=== PATIENT | male | born 1950 | race Caucasian/White ===

== ENCOUNTER 2017-12-21 19:21 | Observation (INO) | payer MEDICARE, OTHER, SELFPAY ==
[2017-12-21] VITALS (10 sets, daily range): BP systolic 133–150; BP diastolic 74–81; PULSE 46–78; RESP 15–18; TEMP 36.4–36.7; O2SAT 96–98; BMI 25.7; BMI 27.0; BMI 27.1
--- NOTE | 2017-12-21 19:46 | CT_ITS ---
STUDY: CT BRAIN WITHOUT CONTRAST REASON FOR EXAM: Male, 67 years old. Dizziness. Recent fall. RADIATION DOSAGE (If Supplied By Facility): CTDIvol = ( 44.99 ) mGy, DLP = ( 846.73 ) mGycm TECHNIQUE: Transaxial CT imaging of the brain was performed without administration of intravenous contrast material. Individualized dose optimization techniques were used for this CT. COMPARISON: None. FINDINGS: Normal soft tissue structures. Normal calvarium. Normal size ventricles and extra-axial spaces for the patient's age. Normal white matter tracts of the cerebral hemispheres. There are small punctate calcifications of the basal ganglia which are seen in the aging brain as a normal variant. Normal brainstem. Normal cerebellum. There is no intracranial hemorrhage. There are no findings of an acute ischemic infarction. Normal visualized paranasal sinuses. CT/Brain/Head without Contrast IMPRESSION: Normal unenhanced CT scan of the brain. Electronically Signed: Radames Vaughan MD at 20:20 EST , Service support ,
--- NOTE | 2017-12-21 19:46 | EKG12_ITS ---
Test Reason : GENERAL ILLNESS Blood Pressure : / mmHG Vent. Rate : 049 BPM Atrial Rate : 049 BPM P-R Int : 182 ms QRS Dur : 072 ms QT Int : 440 ms P-R-T Axes : 035 -16 011 degrees QTc Int : 397 ms Sinus bradycardia Inferior infarct , age undetermined Abnormal ECG Confirmed by KATHERINE MUÑOZ, CARY ([id number]), editor house organ CULLEN BARNETT ([id number]) on 12/25/2017 3:38:56 PM Referred By: DR MALONE Confirmed By:CARY MURPHY MD
[2017-12-21 20:01] LABS: Bedside Glucose 101 mg/dL (70-110)
[2017-12-21 20:13] LABS: Absolute Lymphocyte Count 2.17 X10^3/ul (0.83-4.51); Absolute Neutrophil Count 4.3 X10^3/uL (2.0-7.7); Basophil# 0.03 X10^3/uL; Basophil% 0.4 % (0-1); Eosinophil# 0.08 X10^3/uL; Eosinophils% 1.1 % (0-5); Hematocrit 39.8 % (40-54); Hemoglobin 12.9 g/dl (13.0-16.5); Lymphocyte # 2.17 X10^3/ul (4.0); Lymphocyte % 29.4 % (19-41); Mean Corp Hgb Conc 32.4 g/gl (32-36); Mean Corpuscular Hgb 31.3 pg (27.0-32.0); Mean Corpuscular Volume 96.6 fL (80-94); Mean Platelet Vol. 10.1 fl (6.2-12.0); Monocyte# 0.75 X10^3/uL; Monocyte% 10.2 % (0-10); Neutrophil # 4.34 X10^3/uL (2.7-7.7); Neutrophil % 58.8 % (47-70); Platelet Count 191 K/mm3 (150-450); RBC Distribution Width CV 14.3 % (11.6-14.6); RBC Distribution Width SD 50.9 fl (35.1-43.9); Red Blood Count 4.12 M/mm3 (4.6-6.2); White Blood Count 7.4 K/mm3 (4.4-11.0)
[2017-12-21 20:16] LABS: POSITIVE COUNT NO; POSITIVE DIFFERENTIAL NO; POSITIVE MORPHOLOGY NO
--- NOTE | 2017-12-21 20:19 | ED.VISSUMM ---
- ER Visit Summary Date of Service: 12/21/17 Chief Complaint: Dizziness, unsteady gait History of Present Illness: The patient is a 67 M presenting with dizziness, unsteady gait. He states he woke up around 3 AM and went to the bathroom. He said at that time he had unsteady gait and dizziness. He went back to bed. At 8 AM he woke up and was feeling back to baseline. Around 6:45 PM he went to a . When he tried to walk into the he had unsteady gait and nearly fell. EMS was called. He denies vision or speech changes. Denies numbness or weakness. He has had previous strokes with similar symptoms. He has been off Plavix for the past week due to a kidney stone procedure and upcoming back injection. also noted shortness of breath. He denies chest pain. Physical Examination: Vitals are stable. Patient is afebrile. Alert no acute distress. HEENT exam is unremarkable. Neck is supple. Lungs are clear and equal bilaterally. Heart is regular rate and rhythm. Abdomen is soft nontender nondistended. Extremities are unremarkable. Skin is warm and dry. No focal neurologic deficit. NIH 0 Remainder of exam is unremarkable. Emergency Department Course and Treatment: EKG is sinus bradycardia rate of 49 with no acute ischemic changes. CBC, chemistries unremarkable. INR 1.0. Chest x-ray shows no acute process. CT head shows no acute process. Stroke team was not activated due to NIH less than 4. Patient is feeling improved. Will discuss with the hospitalist for observation. Disposition: Observation Impression: TIA This note was generated with [employer] dictation software. It may contain incorrect words, spelling, and punctuation that were not noted in review of the chart prior to signing ED Disposition - Plan for ED Patient: Chief Complaint: General Illness Referrals: Uri Cortes MD [Primary Care Provider] -
--- NOTE | 2017-12-21 20:20 | RAD_ITS ---
STUDY: X-RAY CHEST REASON FOR EXAM: Male, 67 years old. SOB. He cardia weakness. TECHNIQUE: Portable chest. COMPARISON: None. FINDINGS: The lungs are clear and expanded. There is no demonstrated pleural abnormality. Normal size heart. Normal mediastinum and tania. Normal visualized pulmonary arteries. Normal visualized aortic arch and descending thoracic aorta. Normal visualized thoracic spine. Normal visualized ribs, clavicles, and shoulders. There is no demonstrated abnormality of the visualized soft tissue structures of the upper abdomen. RAD/Chest 1 View IMPRESSION: Normal x-ray examination of the chest. Electronically Signed: Monique Holley MD at 20:40 EST Tel , Service support ,
[2017-12-21 20:22] LABS: Prothrombin Time (Protime)PT. 13.2 SECONDS (11.7-14.9)
[2017-12-21 20:23] LABS: Partial Thromboplast Time 27.9 Seconds (24.1-36.2)
[2017-12-21 20:32] LABS: Anion Gap 7 (5-15); BUN 21 mg/dL (7-18); BUN/Creat Ratio 16.8 RATIO (10-20); Chloride 108 mmol/L (98-107); Creatinine, Serum 1.25 mg/dL (0.70-1.30); EST Glomerular Filtration Rate 61 mL/min (>60); Est Glom Filt Rate - Afr Amer 74 mL/min (>60); Glucose 90 mg/dL (74-106); Potassium 3.8 mmol/L (3.5-5.1); Sodium Level 141 mmol/L (136-145)
--- NOTE | 2017-12-21 21:30 | ED.RN ---
PER MD AMBRIZ TO DO NIH HOURLY UNTIL ADMIT D/T THE PATIENT HAVING A SCORE OF 0 SINCE ARRIVAL.
--- NOTE | 2017-12-21 22:06 | CT_ITS ---
STUDY: CTA OF THE BRAIN REASON FOR EXAM: Male, 67 years old. TIA, dizziness and fell. RADIATION DOSAGE (If Supplied By Facility): CTDIvol = ( 24.42 ) mGy, DLP = ( 87558 ) mGycm TECHNIQUE: CT angiography was performed with a multi-detector CT scanner. Data acquisition was obtained from the skull base through the vertex following intravenous administration of ml of . MIP images were reconstructed from the axial data set. Post-processing of the angiographic images was performed, with multiplanar reformation and 3D reconstruction. Individualized dose optimization techniques were used for this CT. COMPARISON: None. FINDINGS: Normal bilateral petrous carotid arteries. Normal right cavernous carotid artery with a normal supraclinoid bifurcation. Normal left cavernous carotid artery with a normal supraclinoid bifurcation. Normal right A1 segments of the anterior cerebral artery. Normal left A1 segments of the anterior cerebral artery. Normal intact anterior communicating artery (ACOM). Normal bilateral A2 segments of the anterior cerebral arteries. Normal right M1 and M2 segments of the middle cerebral arteries, with a normal M1 bifurcation. Normal left M1 and M2 segments of the middle cerebral arteries, with a normal M1 bifurcation. Robust right posterior communicating artery (PCOM). Robust left posterior communicating artery (PCOM). Normal left vertebral artery. Right vertebral artery terminates in the posterior inferior cerebellar artery, normal variant. Normal basilar artery with a normal basilar bifurcation. The visualized bilateral superior cerebellar (SCA) arteries are normal. P1 segments of the posterior cerebral arteries are somewhat hypoplastic bilaterally. Normal bilateral P2 and visualized P3 segments of the posterior cerebral arteries. There is no demonstrated aneurysm of the [place]. CT/CTA Head W/WO Contrast IMPRESSION: 1. Normal [place] without a demonstrated aneurysm or significant stenosis. Anatomic variants are detailed above. Electronically Signed: Monique Holley MD at 23:40 EST Tel , Service support ,
--- NOTE | 2017-12-21 22:06 | MRI_ITS ---
STUDY: MRI BRAIN WITHOUT CONTRAST REASON FOR EXAM: Male, 67 years old. Dizziness and ataxia yesterday. TECHNIQUE: Standardized multiplanar fat and water weighted pulse sequences were obtained. COMPARISON: None. FINDINGS: There is mild cerebral atrophy with widening of the extra-axial spaces and ventricular dilatation. There are a limited number of small white matter hyperintensities, distributed throughout the deep white matter tracts of the cerebral hemispheres, consistent with mild chronic white matter ischemic changes. There is no evidence for recent intracranial ischemia or other cause of cytotoxic edema on diffusion weighted imaging (DWI). There is no evidence for recent intracranial ischemia or other cause of cytotoxic edema on diffusion weighted imaging (DWI). Normal T2* images of the brain without demonstrated susceptibility artifact. There is no demonstrated hemosiderin stain. There are prominent perivascular spaces (PVS) involving the basal ganglia. There is a focus of abnormal signal left thalamus consistent with old infarct. There is no extra-axial fluid accumulation. Normal flow voids within the major intracranial circulation suggesting patency by spin echo criteria. Normal sella turcica, pituitary gland, infundibular stalk, optic chiasm and hypothalamus. Normal tectal plate and pineal gland. Normal midbrain, evy and medulla. There is a focal area of encephalomalacia involving the superior right cerebellar hemisphere probably related to old infarct. There are large basal cisterns. Normal bilateral temporal bones. Normal bilateral internal auditory canals. There are bilateral ocular lens implants with otherwise normal intraorbital contents. There is mucoperiosteal inflammatory disease of the paranasal sinuses consistent with mild chronic sinusitis. Normal calvarium and skull base. Normal visualized soft tissue structures. Normal visualized upper cervical spine. MRI/Brain without Contrast IMPRESSION: 1. Involutional changes of the brain, as described above. 2. No MRI evidence for acute infarct. 3. 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 Electronically Signed: Essie Turcios MD at 9:13 EST , Service support ,
--- NOTE | 2017-12-21 22:06 | CT_ITS ---
Exam: CTA of the neck with contrast and 2-D reconstructions. HISTORY: Dizziness. Fall. TIA. Previous CVAs. COMPARISON: None TECHNIQUE: Patient injected with 100 cc [id number] IV. Axial images were followed with 2-D MIPS reconstructions reviewed at a separate workstation. FINDINGS: Normal appearance of the visualized aortic arch. Normal branching pattern of the great vessels. Common carotid arteries are normal for age. The right bifurcation has moderate calcified plaque, but no definite hemodynamically significant stenosis. The left bifurcation has mild calcified plaque but no definite hemodynamically significant stenosis. Normal appearance of the cervical ICAs bilaterally to the base of the brain. Normal origin and appearance of the vertebral arteries. The left vertebral artery is dominant. Normal visualized basilar artery. Visualized soft tissues including the lung apices and visualized cervical spine show no gross acute abnormalities. CT/CTA Neck W/WO Contrast IMPRESSION: CTA of the neck vessels is essentially unremarkable for age, with no occlusions or definite hemodynamically significant stenoses.. Electronically Signed: Radames Vaughan MD at 23:20 EST , Service support ,
--- NOTE | 2017-12-21 22:10 | PCM.HP.STD ---
Problem List (1) TIA (transient ischemic attack) Status: Acute (2) Ischemic stroke Status: Acute (3) Dyslipidemia Status: Acute (4) Hypertension Status: Chronic (5) Chronic lumbar pain Status: Chronic History of Present Illness Date of Admission: 12/21/17 Chief Complaint: Vertigo and ataxia today The patient is a 67 year old M with history of TIA and stroke about 3 times in the past with no residual symptoms came to ED with dizziness, vertigo and unsteady gait today. After he woke up, he felt vertigo with dizzy sensation but that resolved after a short time. He was fine after that and then around the afternoon/evening he felt he could not stand up or his legs are giving out. He felt like his drifting on the left side. He denies change in vision or speech. Denies weakness or numbness or tingling. No dysphagia. Patient denies chest pain or missed heartbeat/flutter waves. As per the son, patient had a small PFO. In ED, basic workup was on baseline. BUN 21. Chest x-ray and CT does not show acute change. EKG shows sinus bradycardia at 49 bpm. Patient was not taking Plavix for about 1 week as he was supposed to have lumbar spine injection. As per the son, there is no any procedure for kidney stone is proposed are scheduled [] Past Medical History Past Medical History (Chronic Problems): Chronic Problems Hypertension (Chronic) Chronic lumbar pain (Chronic) Allergies No Known Allergies Allergy (Verified 12/21/17 19:26) Home Medications: Ambulatory Orders Medication Instructions Recorded Atorvastatin Calcium [Lipitor] 40 mg PO QHS 12/21/17 Clopidogrel Bisulfate [Plavix] 75 mg PO DAILY 12/21/17 Multivitamins,Therapeutic 1 tablet PO DAILY 12/21/17 [Multivitamin] Timolol 1 drop RIGHT EYE DAILY 12/21/17 Smoking Status: Never smoker - *Family History Paternal History Items: No pertinent history Review of Systems Constitutional: Denies: Chills, Fever, Weight Change HEENT: Reports: Difficulty Hearing, Hard of Hearing. Denies: Difficulty Swallowing, Dysphasia, Head Aches, Sinus Congestion, Sinus Drainage, Visual Changes Cardiovascular: Denies: Chest Pain, Chest Pressure, Palpitations Respiratory: Denies: Cough, Shortness of breath at rest, Shortness of breath upon exertion, Sputum production Gastrointestinal: Denies: Abdominal Pain, Nausea, Vomiting Genitourinary: Denies: Dysuria, Frequency, Hematuria Musculoskeletal: Reports: Back Pain, Joint Pain. Denies: Joint Tenderness Skin: Denies: Rash, Wounds Neurological: Reports: Balance problems - Lumbar spine pain, Incoordination. Denies: Blurred vision, Double vision, Change in Speech, Slurred speech, Confusion, Difficulty swallowing, Focal weakness, Numbness, Tingling Psychiatric: Denies: Anxiety, Depression, Homicidal Ideations, Suicidal Ideations Hematologic/ Lymphatic: Denies: Easy Bruising, Easy Bleeding VTE Information - Inpt Only VTE Present on Admission: No VTE Mechan Device Prophylaxis: SCD's VTE Pharm Prophylaxis ordered?: Yes Patient Problems: Active and Suspected Problems TIA (transient ischemic attack) (Acute) Ischemic stroke (Acute) Dyslipidemia (Acute) - Physical Exam General: Alert, Oriented x3, Cooperative HEENT: Atraumatic, PERRLA, EOMI, Normocephalic Neck: Supple, No JVD, Negative Carotid Bruits Lungs: Clear to auscultation, No rhonchi, No wheeze, No rales, Diminished - Air entry diminished in bilateral lung bases Cardiovascular: Regular Rhythm, Normal S1, Normal S2, No murmurs, Bradycardic Abdomen: Bowel Sounds Present, Soft, Non Tender, Non-Distended, No Hepato-splenomegaly Extremities: No edema, Capillary Refill Less than 3 Seconds Skin: No rashes, No breakdown Musculoskeletal: No Tenderness to Palpation of Joints or Extremities, Arthritic Changes Neurological: Cranial nerves II-XII grossly intact, Deep Tendon Reflexes 2+/4 and Symmetrical, Neuro grossly intact, Motor Exam 5/5 strength throughout, - - NIH stroke scale 0. No facial droop. Psych/Mental Status: Normal Affect, Appropriate Vital Signs Temp Pulse Resp BP Pulse Ox 98.0 F 50 L 15 135/79 H 98 12/21/17 19:21 12/21/17 22:00 12/21/17 22:00 12/21/17 22:00 12/21/17 21:00 Oxygen Delivery Method Room Air Weight: 185 lb Body Mass Index (BMI) 25.7 Finger Stick Blood Glucose 101 Laboratory Tests Past 24 Hrs 12/21/17 12/21/17 12/21/17 19:55 19:55 19:55 WBC 7.4 RBC 4.12 L Hgb 12.9 L Hct 39.8 L MCV 96.6 H MCH 31.3 MCHC 32.4 RDW 14.3 RDW Differential 50.9 H Plt Count 191 MPV 10.1 Immature Gran % (Auto) 0.100 Neut % (Auto) 58.8 Lymph % (Auto) 29.4 Evangeline % (Auto) 10.2 H Eos % (Auto) 1.1 Baso % (Auto) 0.4 Absolute Neuts (auto) 4.3 Absolute Lymphs (auto) 2.17 Total Counted Not Reportable PT 13.2 INR 1.0 APTT 27.9 Sodium 141 Potassium 3.8 Chloride 108 H Carbon Dioxide 26.0 Anion Gap 7 BUN 21 H Creatinine 1.25 Estim Creat Clear Calc 59.40 Est GFR (MDRD) Af Amer 74 Est GFR (MDRD) Non-Af 61 BUN/Creatinine Ratio 16.8 Glucose 90 Calcium 9.0 Troponin I < 0.015 POC Glucose 12/21/17 19:53 POC Glucose 101 Assessment/Plan All Active Problems TIA (transient ischemic attack) (Acute) Ischemic stroke (Acute) Dyslipidemia (Acute) The patient is a 67 year old M with history of TIA and stroke about 3 times in the past with no residual symptoms came to ED with dizziness, vertigo and unsteady gait today. After he woke up, he felt vertigo with dizzy sensation but that resolved after a short time. He was fine after that and then around the afternoon/evening he felt he could not stand up or his legs are giving out. He felt like his drifting on the left side. He denies change in vision or speech. Denies weakness or numbness or tingling. No dysphagia. In ED, basic workup was on baseline. BUN 21. Chest x-ray and CT does not show acute change. EKG shows sinus bradycardia at 49 bpm. Patient was not taking Plavix for about 1 week as he was supposed to have lumbar spine injection. 1. TIA with history of stroke/TIA with no residual symptoms: Patient is being admitted on PCU on cardiac telemetry. On a stroke/TIA protocol with MRI brain, CTA of head and neck, neurology consult and 2D echo. Patient is on Plavix and atorvastatin at home but he was not taking Plavix for 1 week as mentioned above. PT/OT and speech evaluation as per TIA protocol. BP and glucose control as per stroke guidelines. 2. Possible undiagnosed hypertension: Patient blood pressure was 150/80 in triage. Currently it is controlled 135/79. Does not need antihypertensive medication. Permissive hypertension. 3. Dyslipidemia: Fasting profile tomorrow a.m. 4. Small PFO as per the son: 2D echo is ordered. 5. Chronic lumbar spine pain probably secondary to degenerative joint disease: Stable. DVT prophylaxis: On heparin 5000 units subcut units twice daily This note was generated with [employer] dictation software. Every effort was made to ensure accuracy, however computerized business services specialist sales mistakes may persist. Code Visit OBSV E&M: 73629 Initial observation care L3
[2017-12-22] VITALS (7 sets, daily range): BP systolic 118–133; BP diastolic 63–89; PULSE 48–67; RESP 16; TEMP 36.4–36.8; O2SAT 97–98; BMI 27.0
[2017-12-22] MEDS: 0.9% Normal Saline 1,000 ML 100 ML IV (00:03)
[2017-12-22] MEDS: Atorvastatin Calcium 80 MG Tablet PO (00:14)
[2017-12-22 00:51] LABS: Bedside Glucose 116 mg/dL (70-110)
[2017-12-22 00:57] LABS: Thyroid Stim Hormone (TSH) 3.09 uIU/mL (0.358-3.74)
[2017-12-22 07:25] LABS: Anion Gap 8 (5-15); BUN 20 mg/dL (7-18); BUN/Creat Ratio 18.5 RATIO (10-20); Calcium,Total 8.6 mg/dL (8.5-10.1); Chloride 111 mmol/L (98-107); Cholesterol 173 mg/dL (200); Creatinine, Serum 1.08 mg/dL (0.70-1.30); EST Glomerular Filtration Rate 72 mL/min (>60); Est Glom Filt Rate - Afr Amer 87 mL/min (>60); Estimated Creatinine Clearance 68.75 ml/min; Glucose 98 mg/dL (74-106); High Density Lipoprotein 60 mg/dL; Potassium 3.9 mmol/L (3.5-5.1); Sodium Level 144 mmol/L (136-145); Triglycerides 111 mg/dL; Very Low Density Lipoprotein 22 mg/dL (5-40)
[2017-12-22] MEDS: Timolol 0.5% 5ML OPTH.BTL 1 DRP RIGHT EYE (09:19)
[2017-12-22] MEDS: Heparin Injection (Vial) 5,000 UNIT/ML VIAL 5000 UNIT SC (09:19)
[2017-12-22] MEDS: Clopidogrel Bisulfate 75 MG Tablet PO (09:19)
[2017-12-22] MEDS: Multivitamins,Therapeutic Tablet 1 TABLET PO (09:19)
[2017-12-22] MEDS: Famotidine 20 MG Tablet PO (09:19)
--- NOTE | 2017-12-22 10:00 | ECHOD_ITS ---
Reason For Study: TIA/CVA Procedure This was a 2D Doppler, Color Flow transthoracic echocardiogram. Exam performed portable in patient room. Left Ventricle Normal size and thickness. The estimated ejection fraction is 65 %. Normal diastology for age. No regional wall motion abnormalities noted. Right Ventricle Normal size and thickness. Normal systolic function. Atria Normal left atrium. Normal right atrium. Normal atrial septum. Positive bubble study with R to L crossover. Mitral Valve The mitral valve is structurally normal. No prolapse or stenosis seen. Tricuspid Valve Normal tricuspid valve. Unable to estimate RV systolic pressure due to inadequate jet, pulmonary artery pressure probably normal. Aortic Valve Normal aortic valve. Trisinus/trileaflet aortic valve. Pulmonic Valve Normal pulmonic valve. Trivial pulmonic valve insufficiency. Great Vessels Normal aortic root. Mild atherosclerosis of the aortic arch. Normal inferior vena cava. Inferior vena cava collapse with sniff. Pericardium/Pleural No pericardial effusion. Medication Performed a rapid injection of agitated mix of 9 cc saline and 1cc air to assess for atrial septal defect. MMode/2D Measurements & Calculations LVIDd: 3.6 cm IVSd: 1.1 cm Ao root diam: 3.7 cm LVIDs: 1.9 cm LVPWd: 0.79 cm LA dimension: 3.6 cm RVDd: 3.7 cm FS: 46.8 % LAV(MOD-bp): 59.1 ml LA A4 area: 17.8 cm2 RA A4 area: 16.5 cm2 LAV(MOD-bp) Indexed: 28.4 ml/m2 LAV(MOD-sp2): 72.3 ml LAV(MOD-sp4): 48.0 ml Time Measurements MV dec time: 0.26 sec Doppler Measurements & Calculations MV E max anibal: 74.3 cm/sec Lat Peak E' Anibal: 8.3 cm/sec Med Peak E' Anibal: 8.6 cm/sec MV A max anibal: 71.7 cm/sec E/E' lat: 8.9 E/E' med: 8.7 MV E/A: 1.0 MV V2 max: 95.3 cm/sec MV P1/2t max anibal: 97.3 cm/sec Ao V2 max: 126.2 cm/sec MV max P.6 mmHg MV P1/2t: 101.0 msec Ao max P.4 mmHg MV V2 mean: 51.5 cm/sec MV dec slope: 282.1 cm/sec2 Ao V2 mean: 80.5 cm/sec MV mean P.3 mmHg MVA(P1/2t): 2.2 cm2 Ao mean P.0 mmHg MV V2 VTI: 33.4 cm Ao V2 VTI: 28.3 cm LV V1 max: 117.9 cm/sec PA V2 max: 117.5 cm/sec LV V1 max P.6 mmHg LV V1 mean P.4 mmHg LV V1 mean: 71.1 cm/sec LV V1 VTI: 26.3 cm Interpretation Summary The estimated ejection fraction is 65 %. Normal diastology for age. Positive bubble study with R to L crossover. Unable to estimate RV systolic pressure due to inadequate jet, pulmonary artery pressure probably normal. There is no comparison study available. Ordering Physician: Rosendo Cooper Referring Physician: Uri Cortes Performed By: Mars Riley RCS
--- NOTE | 2017-12-22 10:40 | CON.PCM_ITS ---
Reason for Consult Date of Consultation: 12/22/17 Reason for Consultation: discoordination History of Present Illness: The patient is a 67 year old M presented after spell of discoordination yesterday begininning around 7pm and lasting 4 hours. was walking and suddenly veered to the left. no other symptoms. was with him and reports he was staggering, like drunk. did not note other focal symptoms. earlier that day at 3am noted similar symptoms. denies lightheadedness or spinning. meds held 4 days ago pre-procedure. now feels normal. in august he was admitted for ministroke which reports didnt show up on tests. they dont remember seeing a neurologist at that point ([facility]). symptoms apparently the same, worse however. Per admit H&P: The patient is a 67 year old M with history of TIA and stroke about 3 times in the past with no residual symptoms came to ED with dizziness, vertigo and unsteady gait today. After he woke up, he felt vertigo with dizzy sensation but that resolved after a short time. He was fine after that and then around the afternoon/evening he felt he could not stand up or his legs are giving out. He felt like his drifting on the left side. He denies change in vision or speech. Denies weakness or numbness or tingling. No dysphagia. Patient denies chest pain or missed heartbeat/flutter waves. As per the son, patient had a small PFO. In ED, basic workup was on baseline. BUN 21. Chest x-ray and CT does not show acute change. EKG shows sinus bradycardia at 49 bpm. Patient was not taking Plavix for about 1 week as he was supposed to have lumbar spine injection. As per the son, there is no any procedure for kidney stone is proposed are scheduled as Past Medical History Past Medical History (Chronic Problems): Chronic Problems Hypertension (Chronic) Chronic lumbar pain (Chronic) Allergies No Known Allergies Allergy (Verified 12/21/17 19:26) Home Medications: Ambulatory Orders Medication Instructions Recorded Atorvastatin Calcium [Lipitor] 40 mg PO QHS 12/21/17 Clopidogrel Bisulfate [Plavix] 75 mg PO DAILY 12/21/17 RX: Multivitamins,Therapeutic 1 tablet PO DAILY 12/21/17 [Multivitamin] Timolol 1 drop RIGHT EYE DAILY 12/21/17 Sertraline HCl [Zoloft] 50 mg PO DAILY 12/22/17 Smoking Status: Never smoker Tobacco Use: Non-smoker - *Family History Paternal History Items: No pertinent history Review of Systems Constitutional: Denies: Chills, Fever, Weight Change HEENT: Denies: Head Aches, Sinus Congestion, Sinus Drainage Cardiovascular: Denies: Chest Pain, Palpitations Respiratory: Denies: Cough, Shortness of breath at rest, Sputum production Gastrointestinal: Denies: Abdominal Pain, Nausea, Vomiting Genitourinary: Denies: Dysuria Musculoskeletal: Denies: Joint Pain, Joint Tenderness Skin: Denies: Rash, Wounds Neurological: Denies: Numbness, Tingling, Focal weakness Psychiatric: Denies: Anxiety, Depression, Homicidal Ideations, Suicidal Ideations Hematologic/ Lymphatic: Denies: Easy Bruising, Easy Bleeding Patient Problems: Active and Suspected Problems TIA (transient ischemic attack) (Acute) Ischemic stroke (Acute) Dyslipidemia (Acute) - Physical Exam General: Alert, Oriented x3, Cooperative, No apparent distress Neurological: Cranial nerves II-XII grossly intact, Deep Tendon Reflexes 2+/4 and Symmetrical, Neuro grossly intact, Motor Exam 5/5 strength throughout, Coordination normal Psych/Mental Status: Normal Affect, Alert and oriented to time, place, person, mood and affect Vital Signs Temp Pulse Resp BP Pulse Ox 36.8 C 60 16 126/69 H 98 12/22/17 07:45 12/22/17 07:45 12/22/17 07:45 12/22/17 07:45 12/22/17 07:45 Oxygen Delivery Method Room Air Weight: 88 kg Body Mass Index (BMI) 27.0 Finger Stick Blood Glucose 101 Intake and Output for Last 24 Hours 12/20/17 12/21/17 12/22/17 23:59 23:59 23:59 Intake Total 855 / 855 Output Total 350 / 350 Balance 505 / 505 Laboratory Tests Past 24 Hrs 12/21/17 12/21/17 12/21/17 19:55 19:55 19:55 WBC 7.4 RBC 4.12 L Hgb 12.9 L Hct 39.8 L MCV 96.6 H MCH 31.3 MCHC 32.4 RDW 14.3 RDW Differential 50.9 H Plt Count 191 MPV 10.1 Immature Gran % (Auto) 0.100 Neut % (Auto) 58.8 Lymph % (Auto) 29.4 [place] % (Auto) 10.2 H Eos % (Auto) 1.1 Baso % (Auto) 0.4 Absolute Neuts (auto) 4.3 Absolute Lymphs (auto) 2.17 Total Counted Not Reportable PT 13.2 INR 1.0 APTT 27.9 Sodium 141 Potassium 3.8 Chloride 108 H Carbon Dioxide 26.0 Anion Gap 7 BUN 21 H Creatinine 1.25 Estim Creat Clear Calc 59.40 Est GFR (MDRD) Af Amer 74 Est GFR (MDRD) Non-Af 61 BUN/Creatinine Ratio 16.8 Glucose 90 Calcium 9.0 Troponin I < 0.015 Triglycerides Cholesterol LDL Cholesterol VLDL Cholesterol HDL Cholesterol TSH 12/21/17 12/22/17 23:52 06:27 WBC RBC Hgb Hct MCV MCH MCHC RDW RDW Differential Plt Count MPV Immature Gran % (Auto) Neut % (Auto) Lymph % (Auto) [place] % (Auto) Eos % (Auto) Baso % (Auto) Absolute Neuts (auto) Absolute Lymphs (auto) Total Counted PT INR APTT Sodium 144 Potassium 3.9 Chloride 111 H Carbon Dioxide 25.0 Anion Gap 8 BUN 20 H Creatinine 1.08 Estim Creat Clear Calc 68.75 Est GFR (MDRD) Af Amer 87 Est GFR (MDRD) Non-Af 72 BUN/Creatinine Ratio 18.5 Glucose 98 Calcium 8.6 Troponin I < 0.015 Triglycerides 111 Cholesterol 173 LDL Cholesterol 91 VLDL Cholesterol 22 HDL Cholesterol 60 TSH 3.09 POC Glucose 12/22/17 12/21/17 00:43 19:53 POC Glucose 116 H 101 Current Medications Generic Name Dose Route Start Last Admin Trade Name Freq PRN Reason Stop Dose Admin Acetaminophen 650 mg 12/21/17 22:06 Tylenol PO Q4H PRN PRN Headache/Temp>99F Atorvastatin Calcium 80 mg 12/21/17 22:06 12/22/17 00:14 Lipitor PO 80 mg QHS BATOOL Administration Clopidogrel Bisulfate 75 mg 12/22/17 10:00 12/22/17 09:19 Plavix PO 75 mg DAILY BATOOL Administration Famotidine 20 mg 12/22/17 10:00 12/22/17 09:19 Pepcid PO 20 mg BID BATOOL Administration Heparin Sodium (Porcine) 5,000 unit 12/22/17 10:00 12/22/17 09:19 Heparin Na SC 5,000 unit BID BATOOL Administration Labetalol HCl 10 mg 12/21/17 22:06 Trandate IV 12/22/17 22:07 Q10M PRN MAINTAIN BP < 220/120 Multivitamins 1 tablet 12/22/17 08:00 12/22/17 09:19 Multivitamin PO 1 tablet DAILYCM BATOOL Administration Sodium Chloride 5 - 30 ml 12/22/17 00:10 IV UD PRN SALINE FLUSH Timolol Maleate 1 drop 12/22/17 10:00 12/22/17 09:19 Timoptic RIGHT EYE 1 drop DAILY BATOOL Administration MRI reviewed, no acute CTA reviewed. There is multifocal calcifications however there does not appear to be significant stenosis. Assessment/Plan All Active Problems TIA (transient ischemic attack) (Acute) Ischemic stroke (Acute) Dyslipidemia (Acute) transient discoordination, tia (unlikely given stereotyped nonfocal events) versus transient hypotension or arrhythmia vs bppv tele pt/ot even monitor rec check orthostatics
[2017-12-22 11:06] LABS: Bedside Glucose 102 mg/dL (70-110)
[2017-12-22 11:21] LABS: Bedside Glucose 143 mg/dL (70-110)
--- NOTE | 2017-12-22 13:58 | DCINST_ITS ---
- Discharge Diagnoses Current Active Problems: Current Active and Chronic Problems TIA (transient ischemic attack) (Acute) Ischemic stroke (Acute) Dyslipidemia (Acute) Hypertension (Chronic) Chronic lumbar pain (Chronic) You will use the following diet at home:: Cardiac Your food should be the consistency of: Regular Your liquids should be the consistency of: Regular/Thin Discharge Activity: Return to Normal Activity Call your doctor if you observe: Fainting spells, - - recurrent dizziness. Allergies/Adverse Reactions: Allergies No Known Allergies Allergy (Verified 12/21/17 19:26) Medications to take at Discharge Atorvastatin Calcium [Lipitor] 40 mg PO QHS 12/21/17 Clopidogrel Bisulfate [Plavix] 75 mg PO DAILY 12/21/17 Multivitamins,Therapeutic [Multivitamin] 1 tablet PO DAILY 12/21/17 Timolol 1 drop RIGHT EYE DAILY 12/21/17 Meclizine HCl [Antivert] 25 mg PO TID PRN PRN #20 tablet 12/22/17 Sertraline HCl [Zoloft] 50 mg PO DAILY 12/22/17 The following prescriptions were given: Meclizine HCl [Antivert] 25 mg PO TID PRN PRN #20 tablet PRN Reason: Dizziness Orders to be completed after discharge: 30-Day Event Recorder [[facility]] Location: None Selected Physical Therapy Evaluation Location: None Selected Primary Care Physician: Uri Cortes MD [Primary Care Provider] - Within 2 Weeks Test Results: Test results from this visit will be discussed in further detail at your follow- up appointment, if applicable. Please Follow Up With: Sreekanth Hassan MD When: 4-6 weeks
--- NOTE | 2017-12-22 13:58 | PCM.DC.SUM ---
Discharge Date and Diagnosis - Problem List Patient Problems: Active and Suspected Problems Vertigo (Acute) Date of Admission: 12/21/17 Date of Discharge: 12/22/17 - Primary Discharge Diagnosis Active and Suspected Problems Vertigo (Acute) TIA (transient ischemic attack) (Acute) Ischemic stroke (Acute) Dyslipidemia (Acute) - Secondary Discharge Diagnosis Chronic Problems Hypertension (Chronic) Chronic lumbar pain (Chronic) Hospital Course and Treatment Imaging Results: 12/22/17 10:00 Echo Complete [ECHO] QAM Clinical Impression(s) from Imaging Studies Brain CT 12/21/17 19:46 IMPRESSION: Normal unenhanced CT scan of the brain. Electronically Signed: Radames Vaughan MD at 20:20 EST , Service support , Chest X-Ray 12/21/17 20:20 IMPRESSION: Normal x-ray examination of the chest. Electronically Signed: Monique Holley MD at 20:40 EST Tel , Service support , Brain MRI 12/21/17 22:06 IMPRESSION: 1. Involutional changes of the brain, as described above. 2. No MRI evidence for acute infarct. 3. 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 Electronically Signed: Essie Turcios MD at 9:13 EST , Service support , Head CTA 12/21/17 22:06 IMPRESSION: 1. Normal [place] without a demonstrated aneurysm or significant stenosis. Anatomic variants are detailed above. Electronically Signed: Monique Holley MD at 23:40 EST Tel , Service support , Neck CTA 12/21/17 22:06 IMPRESSION: CTA of the neck vessels is essentially unremarkable for age, with no occlusions or definite hemodynamically significant stenoses.. Electronically Signed: Radames Vaughan MD at 23:20 EST , Service support , Procedures: 2-D Echocardiogram Summary of Care Provided: The patient is a 67 year old M since with acute onset of dizziness and vertigo. Symptoms lasted for about 4 hours. Patient states that he has had other episodes but not quite this severe. Patient does have known history of stroke and states that his symptoms were similar to prior episodes of stroke. Patient underwent stroke workup with an MRI, CT angiogram of the head and neck and echocardiogram. MRI showed old strokes and echocardiogram was normal. Patient was seen in consultation by cardiology feel less likely this is due to a TIA. Did recommend, however, patient have an event monitor. Discussed with the patient and his symptoms seem more in line with peripheral vertigo. Recommend patient take a meclizine and follow-up with physical therapy for vestibular rehab. Patient follow-up with neurology for further evaluation and discussion of the event monitor results. [] Patient Problems: Active and Suspected Problems Vertigo (Acute) - Physical Exam General: Alert HEENT: Atraumatic, Normocephalic, - - Slight right lateral nystagmus Psych/Mental Status: Normal Affect, Appropriate Vital Signs Temp Pulse Resp BP Pulse Ox 36.8 C 55 L 16 123/73 H 97 12/22/17 11:45 12/22/17 13:20 12/22/17 11:45 12/22/17 13:20 12/22/17 11:45 Oxygen Delivery Method Room Air Weight: 88 kg Body Mass Index (BMI) 27.0 Finger Stick Blood Glucose 101 Orthostatic Vital Signs Start: 12/22/17 13:20 Freq: q24h Status: Active Protocol: Activity Type Activity Date Activity User E-Sign Co-Sign Detail Recorded Client Recorded Date Recorded By Document 12/22/17 13:20 AMG [id number] 12/22/17 13:21 AMG 12/22/17 13:20 Orthostatic Vitals Standing -Blood Pressure (90/60-120/80) 133/89 H -Extremity Use Left Arm -Pulse Rate (60-100) 67 Sitting -Blood Pressure (90/60-120/80) 120/70 -Extremity Use Left Arm -Pulse Rate (60-100) 59 L Lying -Blood Pressure (90/60-120/80) 123/73 H -Extremity Use Left Arm -Pulse Rate (60-100) 55 L Intake and Output for Last 24 Hours 12/20/17 12/21/17 12/22/17 23:59 23:59 23:59 Intake Total 1600 / 1600 Output Total 350 / 350 Balance 1250 / 1250 Laboratory Tests Past 24 Hrs 12/21/17 12/21/17 12/21/17 19:55 19:55 19:55 WBC 7.4 RBC 4.12 L Hgb 12.9 L Hct 39.8 L MCV 96.6 H MCH 31.3 MCHC 32.4 RDW 14.3 RDW Differential 50.9 H Plt Count 191 MPV 10.1 Immature Gran % (Auto) 0.100 Neut % (Auto) 58.8 Lymph % (Auto) 29.4 [place] % (Auto) 10.2 H Eos % (Auto) 1.1 Baso % (Auto) 0.4 Absolute Neuts (auto) 4.3 Absolute Lymphs (auto) 2.17 Total Counted Not Reportable PT 13.2 INR 1.0 APTT 27.9 Sodium 141 Potassium 3.8 Chloride 108 H Carbon Dioxide 26.0 Anion Gap 7 BUN 21 H Creatinine 1.25 Estim Creat Clear Calc 59.40 Est GFR (MDRD) Af Amer 74 Est GFR (MDRD) Non-Af 61 BUN/Creatinine Ratio 16.8 Glucose 90 Calcium 9.0 Troponin I < 0.015 Triglycerides Cholesterol LDL Cholesterol VLDL Cholesterol HDL Cholesterol TSH 12/21/17 12/22/17 23:52 06:27 WBC RBC Hgb Hct MCV MCH MCHC RDW RDW Differential Plt Count MPV Immature Gran % (Auto) Neut % (Auto) Lymph % (Auto) [place] % (Auto) Eos % (Auto) Baso % (Auto) Absolute Neuts (auto) Absolute Lymphs (auto) Total Counted PT INR APTT Sodium 144 Potassium 3.9 Chloride 111 H Carbon Dioxide 25.0 Anion Gap 8 BUN 20 H Creatinine 1.08 Estim Creat Clear Calc 68.75 Est GFR (MDRD) Af Amer 87 Est GFR (MDRD) Non-Af 72 BUN/Creatinine Ratio 18.5 Glucose 98 Calcium 8.6 Troponin I < 0.015 Triglycerides 111 Cholesterol 173 LDL Cholesterol 91 VLDL Cholesterol 22 HDL Cholesterol 60 TSH 3.09 POC Glucose 12/22/17 12/22/17 12/22/17 11:08 06:53 00:43 POC Glucose 143 H 102 116 H 12/21/17 19:53 POC Glucose 101 Discharge Diet: Low fat/ Low Cholesterol Discharge Activity: Return to Normal Activity Call your doctor if you observe: Fainting spells, - - recurrent dizziness. Home Medications: Medications to take at Discharge Atorvastatin Calcium [Lipitor] 40 mg PO QHS 12/21/17 Clopidogrel Bisulfate [Plavix] 75 mg PO DAILY 12/21/17 Multivitamins,Therapeutic [Multivitamin] 1 tablet PO DAILY 12/21/17 Timolol 1 drop RIGHT EYE DAILY 12/21/17 Meclizine HCl [Antivert] 25 mg PO TID PRN PRN #20 tablet 12/22/17 Sertraline HCl [Zoloft] 50 mg PO DAILY 12/22/17 Following Prescrptions Were Given to Patient: Meclizine HCl [Antivert] 25 mg PO TID PRN PRN #20 tablet PRN Reason: Dizziness Other Amb Orders: 30-Day Event Recorder [[facility]] Location: None Selected Physical Therapy Evaluation Location: None Selected Primary Care Physician: Uri Cortes MD [Primary Care Provider] - Within 2 Weeks Please Follow Up With: Sreekanth Hassan MD When: 4-6 weeks Disposition: Home Minutes spent on discharge:: 24 Patient Condition:: Good Medical Necessity - Tobacco Use Smoking Status: Never smoker Tobacco Use: Non-smoker Meaningful Use Info Meaningful Use Diagnoses (Choose all that apply): None applicable Code Visit OBSV E&M: 87201 Observation care discharge
--- NOTE | 2017-12-22 14:01 | DS.PCM_ITS ---
Discharge Date and Diagnosis - Problem List Patient Problems: Active and Suspected Problems Vertigo (Acute) Date of Admission: 12/21/17 Date of Discharge: 12/22/17 - Primary Discharge Diagnosis Active and Suspected Problems Vertigo (Acute) TIA (transient ischemic attack) (Acute) Ischemic stroke (Acute) Dyslipidemia (Acute) - Secondary Discharge Diagnosis Chronic Problems Hypertension (Chronic) Chronic lumbar pain (Chronic) Hospital Course and Treatment Imaging Results: 12/22/17 10:00 Echo Complete [ECHO] QAM Clinical Impression(s) from Imaging Studies Brain CT 12/21/17 19:46 IMPRESSION: Normal unenhanced CT scan of the brain. Electronically Signed: Radames Vaughan MD at 20:20 EST , Service support , Chest X-Ray 12/21/17 20:20 IMPRESSION: Normal x-ray examination of the chest. Electronically Signed: Monique Holley MD at 20:40 EST Tel , Service support , Brain MRI 12/21/17 22:06 IMPRESSION: 1. Involutional changes of the brain, as described above. 2. No MRI evidence for acute infarct. 3. 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 Electronically Signed: Essie Turcios MD at 9:13 EST , Service support , Head CTA 12/21/17 22:06 IMPRESSION: 1. Normal [place] without a demonstrated aneurysm or significant stenosis. Anatomic variants are detailed above. Electronically Signed: Monique Holley MD at 23:40 EST Tel , Service support , Neck CTA 12/21/17 22:06 IMPRESSION: CTA of the neck vessels is essentially unremarkable for age, with no occlusions or definite hemodynamically significant stenoses.. Electronically Signed: Radames Vaughan MD at 23:20 EST , Service support , Procedures: 2-D Echocardiogram Summary of Care Provided: The patient is a 67 year old M since with acute onset of dizziness and vertigo. Symptoms lasted for about 4 hours. Patient states that he has had other episodes but not quite this severe. Patient does have known history of stroke and states that his symptoms were similar to prior episodes of stroke. Patient underwent stroke workup with an MRI, CT angiogram of the head and neck and echocardiogram. MRI showed old strokes and echocardiogram was normal. Patient was seen in consultation by cardiology feel less likely this is due to a TIA. Did recommend, however, patient have an event monitor. Discussed with the patient and his symptoms seem more in line with peripheral vertigo. Recommend patient take a meclizine and follow-up with physical therapy for vestibular rehab. Patient follow-up with neurology for further evaluation and discussion of the event monitor results. [] Patient Problems: Active and Suspected Problems Vertigo (Acute) - Physical Exam General: Alert HEENT: Atraumatic, Normocephalic, - - Slight right lateral nystagmus Psych/Mental Status: Normal Affect, Appropriate Vital Signs Temp Pulse Resp BP Pulse Ox 36.8 C 55 L 16 123/73 H 97 12/22/17 11:45 12/22/17 13:20 12/22/17 11:45 12/22/17 13:20 12/22/17 11:45 Oxygen Delivery Method Room Air Weight: 88 kg Body Mass Index (BMI) 27.0 Finger Stick Blood Glucose 101 Orthostatic Vital Signs Start: 12/22/17 13:20 Freq: q24h Status: Active Protocol: Activity Type Activity Date Activity User E-Sign Co-Sign Detail Recorded Client Recorded Date Recorded By Document 12/22/17 13:20 AMG [id number] 12/22/17 13:21 AMG 12/22/17 13:20 Orthostatic Vitals Standing -Blood Pressure (90/60-120/80) 133/89 H -Extremity Use Left Arm -Pulse Rate (60-100) 67 Sitting -Blood Pressure (90/60-120/80) 120/70 -Extremity Use Left Arm -Pulse Rate (60-100) 59 L Lying -Blood Pressure (90/60-120/80) 123/73 H -Extremity Use Left Arm -Pulse Rate (60-100) 55 L Intake and Output for Last 24 Hours 12/20/17 12/21/17 12/22/17 23:59 23:59 23:59 Intake Total 1600 / 1600 Output Total 350 / 350 Balance 1250 / 1250 Laboratory Tests Past 24 Hrs 12/21/17 12/21/17 12/21/17 19:55 19:55 19:55 WBC 7.4 RBC 4.12 L Hgb 12.9 L Hct 39.8 L MCV 96.6 H MCH 31.3 MCHC 32.4 RDW 14.3 RDW Differential 50.9 H Plt Count 191 MPV 10.1 Immature Gran % (Auto) 0.100 Neut % (Auto) 58.8 Lymph % (Auto) 29.4 [place] % (Auto) 10.2 H Eos % (Auto) 1.1 Baso % (Auto) 0.4 Absolute Neuts (auto) 4.3 Absolute Lymphs (auto) 2.17 Total Counted Not Reportable PT 13.2 INR 1.0 APTT 27.9 Sodium 141 Potassium 3.8 Chloride 108 H Carbon Dioxide 26.0 Anion Gap 7 BUN 21 H Creatinine 1.25 Estim Creat Clear Calc 59.40 Est GFR (MDRD) Af Amer 74 Est GFR (MDRD) Non-Af 61 BUN/Creatinine Ratio 16.8 Glucose 90 Calcium 9.0 Troponin I < 0.015 Triglycerides Cholesterol LDL Cholesterol VLDL Cholesterol HDL Cholesterol TSH 12/21/17 12/22/17 23:52 06:27 WBC RBC Hgb Hct MCV MCH MCHC RDW RDW Differential Plt Count MPV Immature Gran % (Auto) Neut % (Auto) Lymph % (Auto) [place] % (Auto) Eos % (Auto) Baso % (Auto) Absolute Neuts (auto) Absolute Lymphs (auto) Total Counted PT INR APTT Sodium 144 Potassium 3.9 Chloride 111 H Carbon Dioxide 25.0 Anion Gap 8 BUN 20 H Creatinine 1.08 Estim Creat Clear Calc 68.75 Est GFR (MDRD) Af Amer 87 Est GFR (MDRD) Non-Af 72 BUN/Creatinine Ratio 18.5 Glucose 98 Calcium 8.6 Troponin I < 0.015 Triglycerides 111 Cholesterol 173 LDL Cholesterol 91 VLDL Cholesterol 22 HDL Cholesterol 60 TSH 3.09 POC Glucose 12/22/17 12/22/17 12/22/17 11:08 06:53 00:43 POC Glucose 143 H 102 116 H 12/21/17 19:53 POC Glucose 101 Discharge Diet: Low fat/ Low Cholesterol Discharge Activity: Return to Normal Activity Call your doctor if you observe: Fainting spells, - - recurrent dizziness. Home Medications: Medications to take at Discharge Atorvastatin Calcium [Lipitor] 40 mg PO QHS 12/21/17 Clopidogrel Bisulfate [Plavix] 75 mg PO DAILY 12/21/17 Multivitamins,Therapeutic [Multivitamin] 1 tablet PO DAILY 12/21/17 Timolol 1 drop RIGHT EYE DAILY 12/21/17 Meclizine HCl [Antivert] 25 mg PO TID PRN PRN #20 tablet 12/22/17 Sertraline HCl [Zoloft] 50 mg PO DAILY 12/22/17 Following Prescrptions Were Given to Patient: Meclizine HCl [Antivert] 25 mg PO TID PRN PRN #20 tablet PRN Reason: Dizziness Other Amb Orders: 30-Day Event Recorder [[facility]] Location: None Selected Physical Therapy Evaluation Location: None Selected Primary Care Physician: Uri Cortes MD [Primary Care Provider] - Within 2 Weeks Please Follow Up With: Sreekanth Hassan MD When: 4-6 weeks Disposition: Home Minutes spent on discharge:: 24 Patient Condition:: Good Medical Necessity - Tobacco Use Smoking Status: Never smoker Tobacco Use: Non-smoker Meaningful Use Info Meaningful Use Diagnoses (Choose all that apply): None applicable Code Visit OBSV E&M: 95615 Observation care discharge
== END 2017-12-22 13:58 | disposition home or self-care (01) ==
LOC: ED 21:21 → PCU 22:11
PROVIDERS: Admitting Provider Internal Medicine; Emergency Provider Emergency Medicine; Family Provider Family Medicine; PCP Family Medicine
DX: G45.9 Transient cerebral ischemic attack, unspecified (principal); R42 Dizziness and giddiness; E78.5 Hyperlipidemia, unspecified; R06.02 Shortness of breath; R29.700 NIHSS score 0; Z79.899 Other long term (current) drug therapy; Z79.02 Long term (current) use of antithrombotics/antiplatelets; I10 Essential (primary) hypertension; Q21.1 Atrial septal defect
CPT/HCPCS: 36415; 70450; 70496; 70498; 70551; 71045; 80048; 80061; 82962; 84443; 84484; 85025; 85610; 85730; 93005; 93306; 96360; 96361; 96372; 99218; 99285; J7030; Q9967; A4216; G0378

== ENCOUNTER 2022-06-07 11:39 | Day surgery (SDC) | payer MEDICARE, OTHER, SELFPAY ==
[2022-06-07] VITALS (8 sets, daily range): BP systolic 84–124; BP diastolic 61–78; PULSE 54–66; RESP 14–18; TEMP 36.2–36.6; O2SAT 92–99; BMI 29.4
[2022-06-07] MEDS: Lactated Ringers 1,000 ML 15 ML IV (12:21)
[2022-06-07] MEDS: Lidocaine Jelly 2% 20 ML Syringe (URO-JET) 1 APPLIC (13:10)
[2022-06-07] MEDS: Phenylephrine 0.25% 15 ML NASAL.SRY 15 SPRAY NASAL (13:40)
[2022-06-07] MEDS: Lidocaine 2% (5ml sdv) 5 ML VIAL.MPF (13:43)
--- NOTE | 2022-06-07 13:55 | OP.BRONCH_ITS ---
Patient Name: Steven Gillette Procedure Date: 06/07/2022 12:03 PM Date of : 1950 Age: 71 Procedure: Bronchoscopy Indications: Shortness of breath, Stridor Providers: Neal Phipps MD Referring MD: Neal Phipps MD Medicines: Lidocaine applied to nares and subglottic space, Lidocaine 1% applied to cords 2 mL, Oxygen 6 L/min Complications: No immediate complications Procedure: Pre-Anesthesia Assessment: - A History and Physical has been performed. The patient's medications, allergies and sensitivities have been reviewed. - The risks and benefits of the procedure and the sedation options and risks were discussed with the patient. All questions were answered and informed consent was obtained. - Patient identification and proposed procedure were verified prior to the procedure by the nurse. The procedure was verified in the endoscopy suite. After I obtained informed consent, the scope was passed under direct vision. Throughout the procedure, the patient's blood pressure, pulse, and oxygen saturations were monitored continuously. The bronchoscope was introduced through the right nostril and advanced to the tracheobronchial tree of both lungs. The patient tolerated the procedure well. Moderate Sedation: Moderate (conscious) sedation was personally administered by an anesthesia professional. The following parameters were monitored: oxygen saturation, heart rate, blood pressure, respiratory rate, EKG, adequacy of pulmonary ventilation, and response to care. Total physician intraservice time was 15 minutes. Findings: Saber sheeth trachea, purse cord resiration-perhaps to keep airway open. Distal collapse as well, tracheomalasia present. Trachea/Lissette Abnormalities: Acanthosis was found throughout the tracheobronchial tree. A partially obstructing (about 50% obstructed) airway abnormality was found throughout the tracheobronchial tree. Impression: - Shortness of breath - Stridor - Acanthosis was found throughout the tracheobronchial tree. - Partially obstructing (about 50% obstructed) airway abnormality throughout the tracheobronchial tree. - No specimens collected. Recommendation: - Await test results. MD Neal Blank MD 06/07/2022 1:55:23 PM This report has been signed electronically. Number of Addenda: 0 Note Initiated On: 06/07/2022 12:03 PM
== END 2022-06-07 15:03 | disposition home or self-care (01) ==
LOC: EN 11:41 → AC 11:43
PROVIDERS: PCP Family Medicine; Referring Provider Internal Medicine Pulmonary Disease; Visit Provider Internal Medicine Pulmonary Disease
PROC: 0BJ08ZZ Inspection of Tracheobronchial Tree, Via Natural or Artificial Opening Endoscopic (ICD-10-PCS; CPT 31622; principal; 2022-06-07 12:45)
DX: J98.8 Other specified respiratory disorders (principal); R06.1 Stridor; R06.02 Shortness of breath; I25.10 Atherosclerotic heart disease of native coronary artery without angina pectoris; E78.00 Pure hypercholesterolemia, unspecified; G47.33 Obstructive sleep apnea (adult) (pediatric); Z79.82 Long term (current) use of aspirin; Z79.02 Long term (current) use of antithrombotics/antiplatelets; Z79.899 Other long term (current) drug therapy; Z86.73 Personal history of transient ischemic attack (TIA), and cerebral infarction without residual deficits; Z95.5 Presence of coronary angioplasty implant and graft
CPT/HCPCS: 31622; J2405